=== PATIENT | female | born 1985 | race Caucasian/White ===

== ENCOUNTER 2017-08-02 10:49 | Emergency (ER) | payer SELFPAY ==
[~2017-08-02] VITALS: Ht 144.8 cm; Wt 54.0 kg
[~2017-08-02 10:49] MED LIST: ATARAX,VISTARIL25 MG PO; BACTRIM,SEPT1 TABLET PO; BENTYL20 MG PO; BUPROPION XL150 MG PO; CARAFATE100 MG/ML PO; COZAAR25 MG PO; CYANOCOBALAM1000 MCG PO; DAILY VITAMIN1 EAC4 PO; DICYCLOMINE HCL10 MG PO; FOLIC ACID0.4 MG PO; GINGER ROOT PO; GLUCOPHAGE XR,500 MG; HYDROCODON-ACE1 EAC7 PO; IMODIUM MS REL1 EACH PO; MELATONIN5 M1 PO; MILK THISTLE PO; MILK THISTLE200 M1 PO; MULTI-DAY VITA1 EACH PO; NORCO 5/3251 TABLET PO; OMEPRAZOLE40 M1 PO; ONDANSETRON ODT4 MG PO; PERCOCET 5/31 TABLET PO; PHENADOZ12.5 MG PR; PRILOSEC20 MG PO; PROMETHAZINE HC25 M1 PO; PROZAC10 MG PO; SERTRALINE HCL50 MG PO; SIMVASTATIN20 MG PO; THIAMINE HCL100 MG PO; VALIUM5 MG PO; VIT B1 PO; VIT B12 PO; VIT D PO; VITAMIN B1 PO; VITAMIN B12-FO1 EACH SL; VITAMIN D32000 UNI1 PO; WELLBUTRIN XL150 MG PO; WELLBUTRIN75 MG PO; ZOFRAN ODT4 MG PO
[2017-08-02 11:24] LABS: ADD MIUA? YES; BILIRUBIN NEGATIVE; BLOOD NEGATIVE; COLOR YELLOW ((YELLOW)); GLUCOSE (STRIP) NEGATIVE; KETONES NEGATIVE; LEUKOCYTES MODERATE; NITRITE NEGATIVE; PROTEIN (STRIP) 30; SPECIFIC GRAVITY 1.016 (1.000-1.030)
[2017-08-02 11:28] LABS: BACTERIA RARE /HPF; CALCIUM OXALATE CRYSTALS 3+ /HPF; EPITHELIAL CELLS 4+ /HPF; MUCUS TRACE /LPF; RED BLOOD CELLS 15-20 /HPF (0-5); UCUL ADDED? YES; WHITE BLOOD CELLS 40-50 /HPF (0-5)
[2017-08-02 12:36] LABS: EOSINOPHIL (%) 1.4 % (0-5); EOSINOPHIL COUNT 0.1 K/uL (0-0.3); HEMATOCRIT 28.7 % (36.0-46.0); IMMATURE GRANULOCYTE (%) 0.4 % (0.0-0.7); INSTRUMENT ABS NEUTROPHIL CT 2.8 K/uL; LYMPHOCYTE COUNT 1.7 K/uL (1.0-2.8); MCH 20.6 PG (29.0-34.0); MCHC 28.2 G/DL (30.0-36.0); MCV 72.8 FL (83-99); MEAN PLAT.VOLUME 8.3 uM^3 (9.5-12.4); MONOCYTE COUNT 0.5 K/uL (0-0.8); NEUTROPHIL (%) 53.7 % (45-76); NEUTROPHIL COUNT 2.8 K/uL (1.8-6.4); PLATELET COUNT 723 K/uL (156-360); RBC DIS.WIDTH-CV 18.5 % (11.8-14.6); RBC DIS.WIDTH-SD 48.4 % (39-53); RED BLOOD COUNT 3.94 M/uL (3.80-5.20); WHITE BLOOD COUNT 5.1 K/uL (4.1-10.2)
[2017-08-02 12:36] LABS: CHLORIDE 108 mEq/L (99-109); POTASSIUM 3.8 mEq/L (3.7-5.4); SODIUM 141 mEq/L (136-147)
[2017-08-02 12:38] LABS: GLUCOSE 82 mg/dL (70-99)
[2017-08-02 12:39] LABS: ANION GAP 5 MEQ/L (2-14)
[2017-08-02 12:42] LABS: GFR ESTIMATE (CALCULATED) > 59 mL/min/; UREA NITROGEN (BUN) 9 mg/dL (9-23)
[2017-08-02] MEDS ORDERED: CIPRO500 MG PO (12:59)
[2017-08-02] MEDS ORDERED: PYRIDIUM200 MG PO (12:59)
[2017-08-02 13:50] VITALS: BP 117/86
== END 2017-08-02 13:52 | disposition home or self-care (01) ==
LOC: EME 10:49
PROVIDERS: Emergency Medicine
DX: N39.0 Urinary tract infection, site not specified (principal); D64.9 Anemia, unspecified; N89.8 Other specified noninflammatory disorders of vagina; Z98.84 Bariatric surgery status; Z90.49 Acquired absence of other specified parts of digestive tract; Z98.51 Tubal ligation status; F17.200 Nicotine dependence, unspecified, uncomplicated
CPT/HCPCS: 80048; 81003; 85025; 87077; 87086; 87186; 99281; 99284; J1885; J7030

== ENCOUNTER 2018-03-07 08:27 | Inpatient (IN) | payer OTHER ==
[2018-03-07] VITALS (10 sets, daily range): BP systolic 107–148; BP diastolic 58–92
[~2018-03-07] VITALS: Ht 144.8 cm; Wt 52.5 kg
[~2018-03-07 08:27] MED LIST changes: +CENTRUM WOMEN1 EACH PO; +CIPRO500 MG PO; -MULTI-DAY VITA1 EACH PO; +PYRIDIUM200 MG PO
[2018-03-07 09:09] LABS: APPEARANCE CLEAR ((CLEAR)); BILIRUBIN NEGATIVE; BLOOD MODERATE; COLOR COLORLESS ((YELLOW)); GLUCOSE (STRIP) NEGATIVE; KETONES NEGATIVE; LEUKOCYTES NEGATIVE; NITRITE NEGATIVE; PROTEIN (STRIP) NEGATIVE; SPECIFIC GRAVITY 1.006 (1.000-1.030); UROBILINOGEN 0.2 MG/DL (0.2-1.0)
[2018-03-07 09:11] LABS: BACTERIA NONE SEEN /HPF; EPITHELIAL CELLS RARE /HPF; MUCUS NONE SEEN /LPF; RED BLOOD CELLS 0-5 /HPF (0-5); UCUL ADDED? NO; WHITE BLOOD CELLS 0-5 /HPF (0-5)
[2018-03-07 09:11] LABS: HEMATOCRIT 21.4 % (36.0-46.0); MCH 18.5 PG (29.0-34.0); MCHC 27.1 G/DL (30.0-36.0); MCV 68.4 FL (83-99); RBC DIS.WIDTH-CV 20.2 % (11.8-14.6); RBC DIS.WIDTH-SD 48.6 % (39-53); RED BLOOD COUNT 3.13 M/uL (3.80-5.20); WHITE BLOOD COUNT 7.7 K/uL (4.1-10.2)
[2018-03-07 09:12] LABS: CHLORIDE 104 mEq/L (99-109); POTASSIUM 3.7 mEq/L (3.7-5.4); SODIUM 137 mEq/L (136-147)
[2018-03-07 09:13] LABS: HEMOGLOBIN 5.8 G/DL (11.9-15.5)
[2018-03-07 09:14] LABS: GLUCOSE 92 mg/dL (70-99)
[2018-03-07 09:17] LABS: CREATININE 0.7 mg/dL (0.6-1.3); GFR ESTIMATE (CALCULATED) > 59 mL/min/
[2018-03-07 09:18] LABS: UREA NITROGEN (BUN) 11 mg/dL (9-23)
[2018-03-07 09:25] LABS: QUANTITATIVE HCG < 4.0 MIU/ML
[2018-03-07 09:38] LABS: BASOPHIL (%) 0.4 % (0-1); EOSINOPHIL (%) 2.2 % (0-5); EOSINOPHIL COUNT 0.2 K/uL (0-0.3); IMMATURE GRANULOCYTE (%) 0.5 % (0.0-0.7); LYMPHOCYTE (%) 31.2 % (15-42); LYMPHOCYTE COUNT 2.4 K/uL (1.0-2.8); MONOCYTE (%) 8.4 % (3-12); MONOCYTE COUNT 0.7 K/uL (0-0.8); NEUTROPHIL (%) 57.3 % (45-76); NEUTROPHIL COUNT 4.4 K/uL (1.8-6.4)
[2018-03-07 09:40] LABS: PLATELET COUNT 1037 K/uL (156-360)
[2018-03-07] MEDS ORDERED: TYLENOL EXTRA500 MG PO (10:41)
[2018-03-07] MEDS ORDERED: ADVIL,NUPRIN,M200 MG PO (10:41)
[2018-03-07 11:25] LABS: TOTAL PROTEIN 6.9 g/dL (6.4-8.3)
[2018-03-07 11:26] LABS: TOTAL BILIRUBIN 0.2 mg/dL (0.0-1.0)
[2018-03-07 11:27] LABS: ALKALINE PHOSPHATASE 86 IU/L (3-129)
[2018-03-07 11:30] LABS: ALT (GPT) 45 IU/L (3-49); AST (GOT) 58 IU/L (2-34); DIRECT BILIRUBIN 0.1 mg/dL (0.0-0.3)
[2018-03-07 13:22] LABS: IRON 4 MCG/DL (35-150); TRANSFERRIN (TIBC) 375.7 mg/dL (215-380); TRANSFERRIN SATUR. 1 % (20-55)
[2018-03-07 15:21] LABS: LACTATE DEHYDROGENASE 213 IU/L (20-246)
[2018-03-07 16:27] LABS: HEMATOCRIT 29.2 % (36.0-46.0); HEMOGLOBIN 8.5 G/DL (11.9-15.5); MCH 21.7 PG (29.0-34.0); MCHC 29.1 G/DL (30.0-36.0); MCV 74.5 FL (83-99); NRBC (%) 0.3 /100 WBC (0-0); PLATELET COUNT 831 K/uL (156-360); RBC DIS.WIDTH-CV 23.7 % (11.8-14.6); RBC DIS.WIDTH-SD 63.1 % (39-53); RED BLOOD COUNT 3.92 M/uL (3.80-5.20); WHITE BLOOD COUNT 7.5 K/uL (4.1-10.2)
[2018-03-07 16:53] LABS: ANISOCYTOSIS 1+; EOSINOPHIL ABS CT 0; HYPOCHROMASIA 2+; LYMPHOCYTES 31.2 % (15.0-45.0); MICROCYTOSIS 2+; MONOCYTES 2.7 % (0-9.0); NUCLEATED RBC'S 0.9; OVALOCYTES 1+; PLAT.SUFFICIENCY INCREASED; SEG.NEUTROPHILS 66.1 % (46.0-76.0); TARGET CELLS 1+
[2018-03-07 17:22] LABS: SOURCE SWAB
[2018-03-07 21:55] LABS: HEMATOCRIT 29.6 % (36.0-46.0); MCV 73.8 FL (83-99)
[2018-03-07 22:05] LABS: CANDIDA DNA PROBE NEGATIVE; GARDNERELLA DNA PROBE NEGATIVE; TRICHOMONAS DNA PROBE NEGATIVE
[2018-03-08 04:14] VITALS: BP 100/61
[2018-03-08 05:52] LABS: HEMATOCRIT 28.9 % (36.0-46.0); HEMOGLOBIN 8.4 G/DL (11.9-15.5); INTER. NORMALIZED RATIO 0.9; MCH 21.5 PG (29.0-34.0); MCHC 29.1 G/DL (30.0-36.0); MCV 73.9 FL (83-99); PLATELET COUNT 819 K/uL (156-360); RBC DIS.WIDTH-CV 23.2 % (11.8-14.6); RBC DIS.WIDTH-SD 61.1 % (39-53); RED BLOOD COUNT 3.91 M/uL (3.80-5.20); WHITE BLOOD COUNT 5.9 K/uL (4.1-10.2)
[2018-03-08 06:52] LABS: ALBUMIN 3.5 G/DL (3.2-4.8); ALKALINE PHOSPHATASE 65 IU/L (3-129); ALT (GPT) 33 IU/L (3-49); AST (GOT) 40 IU/L (2-34); CHLORIDE 106 MEQ/L (99-109); CREATININE 0.5 MG/DL (0.6-1.3); GFR ESTIMATE (CALCULATED) > 59 mL/min/; GLUCOSE 88 mg/dL (70-99); POTASSIUM 3.9 MEQ/L (3.7-5.4); SODIUM 138 MEQ/L (136-147); TOTAL BILIRUBIN 0.3 MG/DL (0.0-1.0); TOTAL PROTEIN 5.8 G/DL (6.4-8.3); UREA NITROGEN (BUN) 12 mg/dL (9-23)
[2018-03-08 08:08] VITALS: BP 117/61
[2018-03-08 08:14] LABS: THYROTROPIN (TSH) 1.7 MIU/L (0.4-5.5)
[2018-03-08 08:35] LABS: FOLIC ACID (FOLATE) 14.6 NG/ML (5.0-22.0)
[2018-03-08 10:32] LABS: HEMOGLOBIN A1c (GLYCOHEMOGLOB) 5.3 % (Below 5.7)
[2018-03-08 11:10] VITALS: BP 115/67
[2018-03-08 12:12] LABS: HIV-1/2 AB/AG COMBO Nonreactive
[2018-03-08 12:19] VITALS: BP 114/72
[2018-03-08] MEDS ORDERED: NICOTINE PATCH1 EAC1 TD (13:26)
[2018-03-13 09:19] LABS: JAK2 Mutation Result NOT DETECTED (())
[2018-03-13 09:47] LABS: JAK2 Exon 12 Mutation NOT DETECTED (())
== END 2018-03-08 16:35 | disposition home or self-care (01) | DRG 812 ==
LOC: EME 08:27 → 4SOUTH 10:25 → EDOF 10:25 → ENRESERV 10:33 → CANRESERV 10:33 → ENRESERV 11:09 → 4SOUTH 14:12
PROVIDERS: Emergency Medicine; Hospitalist; Obstetrics & Gynecology; Physician Assistant Medical
PROC: 30233N1 Transfusion of Nonautologous Red Blood Cells into Peripheral Vein, Percutaneous Approach (ICD-10-PCS; principal; 2018-03-07)
DX: D64.89 Other specified anemias (principal); D64.9 Anemia, unspecified; E66.01 Morbid (severe) obesity due to excess calories; K12.1 Other forms of stomatitis; F32.9 Major depressive disorder, single episode, unspecified; K56.1 Intussusception; K12.30 Oral mucositis (ulcerative), unspecified; E28.2 Polycystic ovarian syndrome; I10 Essential (primary) hypertension; F17.210 Nicotine dependence, cigarettes, uncomplicated; E11.9 Type 2 diabetes mellitus without complications; B19.20 Unspecified viral hepatitis C without hepatic coma; H04.123 Dry eye syndrome of bilateral lacrimal glands; Z88.8 Allergy status to other drugs, medicaments and biological substances; Z98.84 Bariatric surgery status; Z79.899 Other long term (current) drug therapy; Z90.710 Acquired absence of both cervix and uterus; Z98.891 History of uterine scar from previous surgery
CPT/HCPCS: 74177; 80048; 80053; 80076; 81003; 81270 90; 82607; 82746; 83036; 83540; 83615; 84443; 84466; 84702; 85007; 85014; 85018; 85025; 85025 91; 85027; 85060; 85610; 85730; 86038; 86235; 86430; 86850; 86900; 86901; 86920; 87254; 87389; 87480; 87491; 87510; 87591; 87660; 99281; 99285; J0696; J1756; J7050; P9016

== ENCOUNTER 2018-03-24 10:49 | Emergency (ER) | payer OTHER ==
[~2018-03-24] VITALS: Ht 144.8 cm; Wt 51.0 kg
[~2018-03-24 10:49] MED LIST changes: +ADVIL,NUPRIN,M200 MG PO; +NICOTINE PATCH1 EAC1 TD; +TYLENOL EXTRA500 MG PO
[2018-03-24 14:15] LABS: APPEARANCE CLEAR ((CLEAR)); BILIRUBIN NEGATIVE; BLOOD NEGATIVE; COLOR YELLOW ((YELLOW)); GLUCOSE (STRIP) NEGATIVE; KETONES NEGATIVE; LEUKOCYTES NEGATIVE; NITRITE NEGATIVE; PROTEIN (STRIP) NEGATIVE; SPECIFIC GRAVITY 1.011 (1.000-1.030); UCUL ADDED? NO; UROBILINOGEN 0.2 MG/DL (0.2-1.0)
[2018-03-24 14:20] LABS: ALBUMIN 4.2 g/dL (3.2-4.8); CHLORIDE 104 mEq/L (99-109); POTASSIUM 3.9 mEq/L (3.7-5.4); SODIUM 140 mEq/L (136-147)
[2018-03-24 14:23] LABS: GLUCOSE 89 mg/dL (70-99); TOTAL PROTEIN 7.6 g/dL (6.4-8.3)
[2018-03-24 14:25] LABS: TOTAL BILIRUBIN 0.6 mg/dL (0.0-1.0)
[2018-03-24 14:26] LABS: ALKALINE PHOSPHATASE 105 IU/L (3-129); CREATININE 0.7 mg/dL (0.6-1.3); GFR ESTIMATE (CALCULATED) > 59 mL/min/
[2018-03-24 14:27] LABS: UREA NITROGEN (BUN) 9 mg/dL (9-23)
[2018-03-24 14:28] LABS: AST (GOT) 77 IU/L (2-34)
[2018-03-24 14:29] LABS: ALT (GPT) 73 IU/L (3-49)
[2018-03-24 14:37] LABS: QUANTITATIVE HCG < 4.0 MIU/ML
[2018-03-24 14:40] LABS: HEMATOCRIT 33.7 % (36.0-46.0); MCH 24.2 PG (29.0-34.0); MCHC 31.2 G/DL (30.0-36.0); MCV 77.6 FL (83-99); RBC DIS.WIDTH-CV 29.3 % (11.8-14.6); RBC DIS.WIDTH-SD 75.3 % (39-53); RED BLOOD COUNT 4.34 M/uL (3.80-5.20); WHITE BLOOD COUNT 7.2 K/uL (4.1-10.2)
[2018-03-24 15:09] LABS: ERTH.SED.RATE 19 MM/HR (0-20)
[2018-03-24 15:16] LABS: LIPASE 26 U/L (1.0-51.0)
[2018-03-24 15:17] LABS: CREATINE KINASE 108 IU/L (1-294)
[2018-03-24 15:18] LABS: C-REACTIVE PROTEIN < 1.0 MG/L (0-10)
[2018-03-24 15:46] LABS: PLAT.SUFFICIENCY ADEQUATE
[2018-03-24 15:47] LABS: PLATELET COUNT 447 K/uL (156-360)
[2018-03-24 15:48] LABS: HEMOGLOBIN 10.5 G/DL (11.9-15.5)
[2018-03-24] MEDS ORDERED: SKELAXIN800 MG PO (15:57)
[2018-03-24] MEDS ORDERED: MOTRIN600 MG PO (15:57)
[2018-03-24] MEDS ORDERED: FLEXERIL10 MG PO (16:06)
[2018-03-24] MEDS ORDERED: PREDNISONE10 M1 PO (16:18)
[2018-03-24 16:23] VITALS: BP 125/86
== END 2018-03-24 16:25 | disposition home or self-care (01) ==
LOC: EME 10:49
PROVIDERS: Physician Assistant
DX: M79.1 Myalgia (principal); D64.9 Anemia, unspecified; Z98.84 Bariatric surgery status; Z90.49 Acquired absence of other specified parts of digestive tract; F17.200 Nicotine dependence, unspecified, uncomplicated
CPT/HCPCS: 80053; 81003; 82550; 83690; 84702; 85027; 85651; 86140; 99281; 99284; J1885